=== PATIENT | male | born 1965 | race Caucasian/White ===

== ENCOUNTER 2025-08-08 10:23 | Day surgery (SDC) | payer MEDICARE ==
[2025-08-08] MEDS: Ringers Lactate 1,000 ML IV ONE (11:00)
[2025-08-08 11:42] LABS: Absolute Lymphocytes (CBC) 1.4 K/uL (0.7-4.9); Hematocrit 46.4 % (39.6-49.0); Hemoglobin 16.5 g/dL (13.6-17.9); MCH 31.5 pg (27.0-35.0); MCHC 35.5 g/dL (32.0-36.0); MCV 88.8 fL (80-100); MPV 8.5 fL (7.6-11.3); Nucleated RBC Absolute Count 0.0 (0-0); Nucleated Red Blood Cells % 0.1 % (0-0); RBC Red Blood Cell Count 5.23 M/uL (4.33-5.43); White Blood Count 5.10 thou/uL (4.3-10.9)
[2025-08-08 11:56] LABS: Anion Gap 10.0 mEq/L (5.0-15.0); BUN Blood Urea Nitrogen 12.0 mg/dL (7-18); Glucose Level 112.0 mg/dL (74-106); Potassium 4.0 mEq/L (3.5-5.1)
[2025-08-08 12:50] LABS: White Blood Cell Scan OK (OK)
[2025-08-08 12:51] LABS: Blood Morphology Comment NOT SEEN (NOT SEEN)
[2025-08-08] MEDS ORDERED: SUCCINYLCHOLINE 20 MG/ML (10 ML) IV ONE (12:54)
[2025-08-08] MEDS ORDERED: EPHEDRINE SULF 50 MG/ML VIAL ONE (12:59)
[2025-08-08] MEDS ORDERED: FENTANYL CITR 100 MCG/2 ML ONE (12:59)
[2025-08-08] MEDS ORDERED: GLYCOPYRROLATE 0.2 MG/ML SYR ONE (12:59)
[2025-08-08 15:26] VITALS: TEMP 97
[2025-08-08 15:27] VITALS: BP 120/73; O2SAT 97
== END 2025-08-08 15:25 | disposition home or self-care (01) ==
LOC: OR 10:23
PROVIDERS: ATTEND Internal Medicine Gastroenterology
PROC: 0DBP8ZX Excision of Rectum, Via Natural or Artificial Opening Endoscopic, Diagnostic (ICD-10-PCS; 2025-08-08)
PROC: 0DBM8ZX Excision of Descending Colon, Via Natural or Artificial Opening Endoscopic, Diagnostic (ICD-10-PCS; 2025-08-08)
PROC: 0DBK8ZX Excision of Ascending Colon, Via Natural or Artificial Opening Endoscopic, Diagnostic (ICD-10-PCS; principal; 2025-08-08 14:00)
DX: Z12.11 Encounter for screening for malignant neoplasm of colon (principal); K57.30 Diverticulosis of large intestine without perforation or abscess without bleeding; K64.8 Other hemorrhoids; D17.79 Benign lipomatous neoplasm of other sites; D12.2 Benign neoplasm of ascending colon; D12.4 Benign neoplasm of descending colon; K63.5 Polyp of colon; Z86.0100 Personal history of colon polyps, unspecified
CPT/HCPCS: 36415; 80048; 85025; 88305; 93005; J0330; J2704; J3010; J7120